=== PATIENT | male | born 1990 ===

== ENCOUNTER 2016-07-06 12:50 | Emergency (ER) | payer OTHER ==
--- NOTE | 2016-07-06 13:37 | UC ---
Throat Pain/Nasal Kyle HPI - HPI Summary HPI Summary: ST, nasal congestion, and cough starting 2 weeks ago. After 7-9 days those symptoms were mostly improved. Then while pt was working last weekend (5-6 days ago) developed worsening ST without fever or congestion, took Sunday off of work and reported improvement. Pain suddenly increased again last night, denies cough or trouble breathing. No shaking chills. - History of Current Complaint Chief Complaint: UCGeneralIllness Stated Complaint: SORE THROAT Time Seen by Provider: 07/06/16 13:20 Hx Obtained From: Patient Onset/Duration: Gradual Onset, Lasting Days Severity: Moderate Cough: Nonproductive - mostly resolved Associated Signs & Symptoms: Positive: Nasal Discharge - resolved. Negative: Wheezing, Fever, Vomiting, Rash - Allergies/Home Medications Allergies/Adverse Reactions: Allergies Allergy/AdvReac Type Severity Reaction Status Date / Time Dust Mite Extract Allergy Runny Nose Verified 07/06/16 13:12 Home Medications: Home Medications NK [No Home Medications Reported] 07/06/16 [History Confirmed 07/06/16] PMH/Surg Hx/FS Hx/Imm Hx Previously Healthy: Yes - Surgical History Surgical History: None - Family History Known Family History: Positive: Hypertension - Social History Occupation: Employed Full-time - at [employer] Alcohol Use: Weekly Substance Use Type: None Smoking Status (MU): Never Smoked Tobacco Review of Systems Constitutional: Negative Skin: Negative Eyes: Negative ENT: Sore Throat, Nasal Discharge Respiratory: Cough Cardiovascular: Negative Gastrointestinal: Negative Genitourinary: Negative Motor: Negative Neurovascular: Negative Musculoskeletal: Negative Neurological: Negative Psychological: Negative All Other Systems Reviewed And Are Negative: Yes Physical Exam Triage Information Reviewed: Yes Appearance: Well-Appearing, No Pain Distress, Obese Vital Signs: Initial Vital Signs Temp 98.6 F 07/06/16 13:13 Pulse 103 07/06/16 13:13 Resp 18 07/06/16 13:13 BP 133/90 07/06/16 13:13 Pulse Ox 98 07/06/16 13:13 Vital Signs Reviewed: Yes Eye Exam: Normal Eyes: Positive: Conjunctiva Clear ENT: Positive: Pharynx normal - poorly visualized due to pt's anatomy, TMs normal. Negative: Nasal drainage, Tonsillar exudate Dental Exam: Normal Neck exam: Normal Neck: Positive: Supple, Nontender, No Lymphadenopathy Respiratory Exam: Normal Respiratory: Positive: Chest non-tender, Lungs clear, Normal breath sounds, No respiratory distress, No accessory muscle use Cardiovascular: Positive: No Murmur, Tachycardia Musculoskeletal Exam: Normal Neurological Exam: Normal Psychological Exam: Normal Skin Exam: Normal Throat Pain/Nasal Course/Dx - Differential Dx/Diagnosis Provider Diagnoses: Pharyngitis. URI, resolving Discharge - Discharge Plan Condition: Stable Disposition: HOME Patient Education Materials: Pharyngitis (ED) Referrals: No Primary Care Phys,NOPCP [Primary Care Provider] - Additional Instructions: Your rapid strep was negative. The resurgence of your sore throat may be related to your recent cold symptoms or it may be an entirely new virus. In any case, almost all sore throats will resolve on their own within about a week's time. If you develop persistent fevers over 100.5F, choking on food or drink, or difficulty with breathing, please return for further evaluation.
== END 2016-07-06 14:00 | disposition home or self-care (01) ==
LOC: UCEAST 12:50
DX: J02.9 Acute pharyngitis, unspecified (principal); J06.9 Acute upper respiratory infection, unspecified
CPT/HCPCS: 87651; 99201; G0463